=== PATIENT | male | born 1990 | race American Indian/Alaskan Native ===

== ENCOUNTER 2017-09-16 13:29 | Emergency (ER) | payer OTHER ==
[2017-09-16 13:40] VITALS: BP 129/88
[2017-09-16] MEDS ORDERED: NORCO 5/325 PO ONE (14:33)
--- NOTE | 2017-09-16 14:37 | Emergency Department Report ---
ED ENT HPI - General Chief complaint: Dental/Oral Stated complaint: TOOTHACHE Time Seen by Provider: 09/16/17 14:26 Source: patient Mode of arrival: Ambulatory Limitations: No Limitations - History of Present Illness Initial comments: 27-year-old -[place] male with no past medical history comes in today stating that he broke his upper tooth on his right jaw a while ago but now is having facial swelling and pain 2 days ago. Patient reports he has no fever no chills but has taken ibuprofen which she feels has helped. Patient currently takes no other medication has no past medical history and no known drug allergies. MD complaint: tooth pain -: days(s) (2) Quality: aching Consistency: constant Improves with: NSAID Worsens with: eating - Related Data Previous Rx's Medication Instructions Recorded Last Taken Type Clindamycin [Clindamycin CAP] 300 mg PO Q8H 10 Days #30 cap 09/16/17 Unknown Rx Ibuprofen [Motrin 600 MG tab] 600 mg PO Q8H PRN 10 Days #30 09/16/17 Unknown Rx tablet Allergies Allergy/AdvReac Type Severity Reaction Status Date / Time No Known Allergies Allergy Verified 09/16/17 13:35 ED Dental HPI - General Chief complaint: Dental/Oral Stated complaint: TOOTHACHE Time Seen by Provider: 09/16/17 14:26 Source: patient Mode of arrival: Ambulatory Limitations: No Limitations - Related Data Previous Rx's Medication Instructions Recorded Last Taken Type Clindamycin [Clindamycin CAP] 300 mg PO Q8H 10 Days #30 cap 09/16/17 Unknown Rx Ibuprofen [Motrin 600 MG tab] 600 mg PO Q8H PRN 10 Days #30 09/16/17 Unknown Rx tablet Allergies Allergy/AdvReac Type Severity Reaction Status Date / Time No Known Allergies Allergy Verified 09/16/17 13:35 ED Review of Systems ROS: Stated complaint: TOOTHACHE Other details as noted in HPI Constitutional: denies: chills, fever Eyes: denies: eye pain, eye discharge, vision change ENT: dental pain Respiratory: denies: cough, shortness of breath, wheezing Cardiovascular: denies: chest pain, palpitations Endocrine: no symptoms reported Gastrointestinal: denies: abdominal pain, nausea, diarrhea Genitourinary: denies: urgency, dysuria Musculoskeletal: denies: back pain, joint swelling, arthralgia Skin: denies: rash, lesions Neurological: denies: headache, weakness, paresthesias Psychiatric: denies: anxiety, depression Hematological/Lymphatic: denies: easy bleeding, easy bruising ED Past Medical Hx - Past Medical History Previous Medical History?: No - Surgical History Past Surgical History?: No - Social History Smoking Status: Former Smoker Substance Use Type: None - Medications Home Medications: Home Medications Medication Instructions Recorded Confirmed Last Taken Type Clindamycin [Clindamycin CAP] 300 mg PO Q8H 10 Days #30 cap 09/16/17 Unknown Rx Ibuprofen [Motrin 600 MG tab] 600 mg PO Q8H PRN 10 Days #30 09/16/17 Unknown Rx tablet ED Physical Exam - General Limitations: No Limitations General appearance: alert, in no apparent distress - Head Head exam: Present: atraumatic, normocephalic - Eye Eye exam: Present: PERRL, EOMI, periorbital swelling (Swelling and mild induration to the right lower eye socket where the check meets. ) - ENT ENT exam: Present: mucous membranes moist - Expanded ENT Exam Expanded Teeth exam: Present: dental caries (multiple), fractured tooth # (32), dental tenderness # (32), gingival enlargement - Neck Neck exam: Present: normal inspection - Respiratory Respiratory exam: Present: normal lung sounds bilaterally. Absent: respiratory distress - Cardiovascular Cardiovascular Exam: Present: regular rate, normal rhythm. Absent: systolic murmur, diastolic murmur, rubs, gallop ED Course Vital Signs 09/16/17 13:35 Temperature 99.3 F Pulse Rate 76 Respiratory 18 Rate Blood Pressure 129/88 O2 Sat by Pulse 98 Oximetry ED Medical Decision Making - Medical Decision Making Patient has been evaluated by this provider fast track. Discussed with patient that we will give him antibiotics which is clindamycin 600 mg IV. We will give patient ibuprofen 600 mg by mouth now. Discussed the patient I'll discharge him on 300 mg 3 times a day for 10 days for tooth abscess as well as refer patient to a dental clinic that he is able to get evaluated and treated further. He verbalized understanding. Critical care attestation.: If time is entered above; I have spent that time in minutes in the direct care of this critically ill patient, excluding procedure time. ED Disposition Clinical Impression: Abscess, dental Disposition: [id number] TO HOME OR SELFCARE Is pt being admited?: No Does the pt Need Aspirin: No Condition: Stable Instructions: Dental Abscess (ED) Additional Instructions: Complete all antibiotics as prescribed. Very important for you to follow with a dentist. Take pain medication as prescribed please eat before taking medication. Prescriptions: Clindamycin [Clindamycin CAP] 300 mg PO Q8H 10 Days #30 cap Ibuprofen [Motrin 600 MG tab] 600 mg PO Q8H PRN 10 Days #30 tablet PRN Reason: Pain Referrals: [facility] [Outside] - 3-5 Days [facility] [Outside] - 3-5 Days Forms: Work/School Release Form(ED)
[2017-09-16] MEDS ORDERED: MOTRIN PO ONE ×2 (14:44→14:54)
[2017-09-16] MEDS ORDERED: CLEOCIN 600 MG/50 mL 600 MG/50 ML BAG IV SCH (15:00)
== END 2017-09-16 15:46 | disposition home or self-care (01) ==
LOC: ED 13:29
DX: K04.7 Periapical abscess without sinus (principal); Z87.891 Personal history of nicotine dependence
CPT/HCPCS: 96365; 99283